=== PATIENT | female | born 2005 | race Caucasian/White ===

== ENCOUNTER 2023-05-11 22:17 | Emergency (ER) | payer SELFPAY ==
[~2023-05-11] VITALS: Ht 167.6 cm; Wt 70.2 kg
[2023-05-11 22:51] LABS: BILIRUBIN,URINE NEGATIVE (NEGATIVE); CLARITY,URINE CLEAR; COLOR,URINE YELLOW; GLUCOSE, URINE (UA) NEGATIVE (NEGATIVE); KETONES,URINE NEGATIVE (NEGATIVE); LEUKOCYTE ESTERASE ,URINE NEGATIVE (NEGATIVE); NITRITE,URINE NEGATIVE (NEGATIVE); PROTEIN,URINE NEGATIVE (NEGATIVE)
[2023-05-11 23:04] LABS: AMPHETAMINE SCREEN, URINE NEGATIVE (NEGATIVE); BARBITURATE SCREEN URINE NEGATIVE (NEGATIVE); BENZODIAZEPINES SCREEN URINE NEGATIVE (NEGATIVE); CANNABINOID SCREEN, URINE NEGATIVE (NEGATIVE); COCAINE SCREEN URINE NEGATIVE (NEGATIVE); METHADONE STAT NEGATIVE (NEGATIVE); OPIATE SCREEN URINE NEGATIVE (NEGATIVE); OXYCODONE STAT NEGATIVE (NEGATIVE); PROPOXYPHENE STAT NEGATIVE (NEGATIVE); TRICYCLIC ANTIDEPRESSANTS SCRE NEGATIVE (NEGATIVE)
[2023-05-11 23:07] LABS: BACTERIA,URINE NEGATIVE /HPF; SQUAMOUS EPITHELIAL CELL,UR 0-2 /HPF
[2023-05-11 23:45] LABS: BASOPHILS # (AUTO) 0.1 10^3/uL (0.0-0.1); BASOPHILS % (AUTO) 1 % (0-10); EOSINOPHILS # (AUTO) 0.2 10^3/uL (0.0-0.3); EOSINOPHILS % (AUTO) 1 % (0-10); HEMATOCRIT 35 % (35-52); HEMOGLOBIN 11.2 g/dL (11.5-16.0); LYMPHOCYTES # (AUTO) 2.5 10^3/uL (1.0-4.0); LYMPHOCYTES % (AUTO) 21 % (12-44); MEAN CORPUSCULAR HEMOGLOBIN 28 pg (25-34); MEAN CORPUSCULAR HGB CONC 33 g/dL (32-36); MEAN CORPUSCULAR VOLUME 87 fL (80-99); MEAN PLATELET VOLUME 10.3 fL (9.0-12.2); MONOCYTES # (AUTO) 0.7 10^3/uL (0.0-1.0); MONOCYTES % (AUTO) 6 % (0-12); NEUTROPHILS # (AUTO) 8.7 10^3/uL (1.8-7.8); NEUTROPHILS % (AUTO) 71 % (42-75); PLATELET COUNT 276 10^3/uL (130-400); WHITE BLOOD COUNT 12.3 10^3/uL (4.3-11.0)
--- NOTE | 2023-05-12 00:32 | ED GU-Female ---
General Chief Complaint: OB < 20 WEEKS Stated Complaint: 7 WEEKS /VAG BLEEDING Nursing Triage Note: PT AMB TO ED BY POV WITH C/O VAGINAL BLEEDING AND LOWER ABD CRAMPING. PT REPORTS SHE BEGAN HAVING BROWN DISCHARGE AND INTERMITTENT ABD CRAMPING 2 WEEKS AGO. TODAY, DISCHARGE IS BLOODY. LMP March, THIS IS PT FIRST . HCG ON 05/07 WAS 64037. Allergies and Home Medications Allergies Coded Allergies: No Known Drug Allergies (Unverified , 05/11/23) Past Gorwtnd-Yoxfez-Zjqatw Hx Patient Social History Tobacco Use?: No Use of E-Cig and/or Vaping dev: No Substance use?: No Alcohol Use?: No Pt feels they are or have been: No Immunizations Up To Date First/Initial COVID19 Vaccinat: N/A Past Medical History Surgery/Hospitalization HX: DENIES Last Menstrual Period: Mar 24, 2023 Physical Exam Vital Signs Vital Signs - First Documented 05/11/23 22:26 Temp 37.1 Pulse 72 Resp 16 B/P (MAP) 131/78 (95) Pulse Ox 99 O2 Delivery Room Air Capillary Refill : Less Than 3 Seconds Height, Weight, BMI Height: '" Weight: lbs. oz. kg; 24.00 BMI Method: Progress/Results/Core Measures Suspected Sepsis SIRS Temperature: Pulse: 72 Respiratory Rate: 16 Laboratory Tests 05/11/23 23:27: White Blood Count 12.3H Blood Pressure 131 /78 Mean: 95 Laboratory Tests 05/11/23 23:27: Platelet Count 276 Results/Orders Lab Results Laboratory Tests Test 05/11/23 22:40 05/11/23 23:27 Range/Units Urine Color YELLOW Urine Clarity CLEAR Urine pH 6.0 5-9 Urine Specific [place] <=1.005 1.016-1.022 Urine Protein NEGATIVE NEGATIVE Urine Glucose (UA) NEGATIVE NEGATIVE Urine Ketones NEGATIVE NEGATIVE Urine Nitrite NEGATIVE NEGATIVE Urine Bilirubin NEGATIVE NEGATIVE Urine Urobilinogen 0.2 < = 1.0 MG/DL Urine Leukocyte Esterase NEGATIVE NEGATIVE Urine RBC (Auto) 2+ H NEGATIVE Urine RBC 2-5 H /HPF Urine WBC NONE /HPF Urine Squamous Epithelial Cells 0-2 /HPF Urine Crystals NONE /LPF Urine Bacteria NEGATIVE /HPF Urine Casts NONE /LPF Urine Mucus NEGATIVE /LPF Urine Culture Indicated NO Urine Opiates Screen NEGATIVE NEGATIVE Urine Oxycodone Screen NEGATIVE NEGATIVE Urine Methadone Screen NEGATIVE NEGATIVE Urine Propoxyphene Screen NEGATIVE NEGATIVE Urine Barbiturates Screen NEGATIVE NEGATIVE Ur Tricyclic Antidepressants Screen NEGATIVE NEGATIVE Urine Phencyclidine Screen NEGATIVE NEGATIVE Urine Amphetamines Screen NEGATIVE NEGATIVE Urine Methamphetamines Screen NEGATIVE NEGATIVE Urine Benzodiazepines Screen NEGATIVE NEGATIVE Urine Cocaine Screen NEGATIVE NEGATIVE Urine Cannabinoids Screen NEGATIVE NEGATIVE White Blood Count 12.3 H 4.3-11.0 10^3/uL Red Blood Count 3.98 3.80-5.11 10^6/uL Hemoglobin 11.2 L 11.5-16.0 g/dL Hematocrit 35 35-52 % Mean Corpuscular Volume 87 80-99 fL Mean Corpuscular Hemoglobin 28 25-34 pg Mean Corpuscular Hemoglobin Concent 33 32-36 g/dL Red Cell Distribution Width 13.5 10.0-14.5 % Platelet Count 276 130-400 10^3/uL Mean Platelet Volume 10.3 9.0-12.2 fL Immature Granulocyte % (Auto) 1 % Neutrophils (%) (Auto) 71 42-75 % Lymphocytes (%) (Auto) 21 12-44 % Monocytes (%) (Auto) 6 0-12 % Eosinophils (%) (Auto) 1 0-10 % Basophils (%) (Auto) 1 0-10 % Neutrophils # (Auto) 8.7 H 1.8-7.8 10^3/uL Lymphocytes # (Auto) 2.5 1.0-4.0 10^3/uL Monocytes # (Auto) 0.7 0.0-1.0 10^3/uL Eosinophils # (Auto) 0.2 0.0-0.3 10^3/uL Basophils # (Auto) 0.1 0.0-0.1 10^3/uL Immature Granulocyte # (Auto) 0.1 0.0-0.1 10^3/uL Human Chorionic Gonadotropin, Quant 00551 H <5 MIU/ML My Orders Orders - GHANSHYAM KASPER DO Cbc With Automated Diff (05/11/23 22:41) Drug Screen Stat (Urine) (05/11/23 22:41) Hcg,Quantitative (05/11/23 22:41) Ua Culture If Indicated (05/11/23 22:41) Abo Rh Type (05/11/23 22:41) Vital Signs/I&O 05/11/23 22:26 Temp 37.1 Pulse 72 Resp 16 B/P (MAP) 131/78 (95) Pulse Ox 99 O2 Delivery Room Air Capillary Refill : Less Than 3 Seconds Blood Pressure Mean: 95 Departure Impression Primary Impression: Threatened in early Disposition: 01 HOME, SELF-CARE Condition: Stable Departure-Patient Inst. Decision time for Depature: 00:30 Referrals: [facility] (PCP/Family) Primary Care Physician Patient Instructions: Threatened Miscarriage (DC) Add. Discharge Instructions: KEEP AN ACCURATE PAD COUNT FOLLOW UP WITH [facility] ON SUNDAY FOR FURTHER CARE LOTS OF FLUIDS TYLENOL NEEDED FOR PAIN NOTHING IN VAGINA--NO TAMPONS, DOUCHING OR INTERCOURSE RETURN TO ER IF YOU HAVE WORSENING SYMPTOMS All discharge instructions reviewed with patient and/or family. Voiced understanding. GHANSHYAM KASPER DO May 12, 2023 00:32
[2023-05-12 00:45] VITALS: BP 128/75
== END 2023-05-12 00:45 | disposition home or self-care (01) ==
LOC: ER 22:22
DX: O20.0 Threatened abortion (principal); Z3A.01 Less than 8 weeks gestation of pregnancy
CPT/HCPCS: 36415; 80306; 81000; 84702; 85025; 86900; 86901

== ENCOUNTER 2023-06-08 05:27 | Outpatient (CLI) | payer SELFPAY ==
[~2023-06-08] VITALS: Ht 167.7 cm; Wt 69.5 kg
== END 2023-06-08 09:55 | disposition home or self-care (01) ==
LOC: PREOP 05:27
PROVIDERS: ATTEND Obstetrics & Gynecology
DX: Z01.818 Encounter for other preprocedural examination (principal)

== ENCOUNTER 2023-06-11 05:49 | Day surgery (SDC) | payer OTHER ==
[~2023-06-11] VITALS: Ht 167.7 cm; Wt 69.5 kg
[2023-06-11] VITALS (11 sets, daily range): BP systolic 86–122; BP diastolic 47–75
[2023-06-11] MEDS: LACTATED RINGERS 1,000 ML 1,000 ML IV PRN ×2 (06:34→07:51)
[2023-06-11] MEDS ORDERED: ONDANSETRON INJECTION 4 MG/2 ML (SDV) ONE (06:51)
[2023-06-11] MEDS ORDERED: proPOfol INJECTION 200 MG/20 ML VIAL IV ONE (06:51)
[2023-06-11] MEDS ORDERED: MIDAZOLAM INJ 2 MG/2 ML VIAL ONE (06:51)
[2023-06-11] MEDS ORDERED: fentaNYL INJECTION 100 MCG/2 ML VIAL ONE (06:51)
[2023-06-11] MEDS ORDERED: KETOROLAC INJ 30 MG/ML VIAL ONE (06:51)
[2023-06-11] MEDS ORDERED: dexAMETHasone INJ 10 MG/ML 1 ML VIAL ONE (06:51)
[2023-06-11] MEDS ORDERED: LIDOCAINE PF 2% 5 ML VIAL ONE (06:51)
--- NOTE | 2023-06-11 07:06 | Operative Report ---
Operative Report Date of Procedure/Surgery Jun 11, 2023 Surgeon (s) JIMMIE LUEVANO DO Fire Control System Installer (s): n/a Post-Operative Diagnosis Missed AB Procedure Performed Suction dilation and curettage Description of Procedure Anesthesia Type: General Estimated blood loss (mL): 200 Specimen(s) collected/removed POC Description of the Procedure Informed consent was obtained and signed and patient was taken to the OR [facility]. 2 placed under general LMA anesthesia placed in dorsolithotomy position prepped and draped usual sterile fashion. A timeout was performed. A pelvic exam under anesthesia revealed a slightly enlarged uterus midline no adnexal masses. The urinary bladder was drained for 250 cc. A weighted speculum was placed into the vaginal vault and the single-tooth tenaculum was used to grasp the anterior lip of the cervix. The cervical os was dilated to allow passage of a 7 [place] curved suction catheter which was passed 3 times and products of conception were removed. A blunt curette was used to fill the edges of the uterine cavity there is a small amount of tissue left on the left side of the uterine cavity. The suction catheter was passed once more and the products of conception were removed. The single-tooth and weighted speculum were removed. Patient was given 20 units of Pitocin in her IV bag. All my counts were correct x2. The patient was taken to recovery room in stable condition. Estimated blood loss was 200 cc. Fluids were 1000 cc. Surgeon was Jimmie Luevano DO. Findings of the Procedure Products of conception Allergies and Home Medications Allergies Coded Allergies: No Known Drug Allergies (Unverified , 06/08/23) Patient Home Medication List Home Medication List Reviewed: Yes Ibuprofen (Ibuprofen) 600 Mg Tablet, 600 MG PO Q6H Prescribed by: Jimmie Luevano on 06/11/23 0754 Last Action: Reviewed JIMMIE LUEVANO DO Jun 11, 2023 07:06
--- NOTE | 2023-06-11 07:06 | Progress Note-Pre Operative ---
Pre-Operative Progress Note Date H&P Reviewed: Jun 11, 2023 Time H&P Reviewed: 07:05 History & Physical: H&P Reviewed, No changes noted Pre-Operative Diagnosis: Missed AB Plan suction D&C JIMMIE LUEVANO DO Jun 11, 2023 07:06
[2023-06-11] MEDS ORDERED: OXYTOCIN INJECTION 10 UNIT/ML VIAL ONE (07:33)
[2023-06-11] MEDS ORDERED: SEVOFLURANE (ULTANE) 15 ML INHAL SOLN ONE (07:37)
[2023-06-11] MEDS ORDERED: IBUP-1773 PO (07:54)
--- NOTE | 2023-06-11 07:55 | Discharge Inst-Simple/Standard ---
Discharge Inst-Standard Reconcile Patient Problems Problems Reviewed?: Yes Discharge Medications New, Converted or Re-Newed RX: Transmitted to Pharmacy Patient Instructions/Follow Up Plan of Care/Instructions/FU: f/u 2wk postop Pelvic rest (nothing in the vagina) Activity as Tolerated: Yes Discharge Diet: Regular Diet JIMMIE LUEVANO DO Jun 11, 2023 07:55
[2023-06-11] MEDS ORDERED: ONDANSETRON INJECTION 4 MG/2 ML (SDV) IVP PRN (08:00)
[2023-06-11] MEDS ORDERED: morphine INJ 10 MG/ML 1ML (SYR OR VIAL) IVP ONE (08:00)
--- NOTE | 2023-06-11 09:10 | Anesthesia-General Post-Op ---
General Patient Condition Mental Status/LOC: Same as Preop Cardiovascular: Satisfactory Nausea/Vomiting: Absent Respiratory: Satisfactory Pain: Controlled Complications: Absent Post Op Complications Complications None Follow Up Care/Instructions Patient Instructions None needed. Anesthesia/Patient Condition Patient Condition Patient is doing well, no complaints, stable vital signs, no apparent adverse anesthesia problems. No complications reported per nursing. ZACHERY TORRES CRNA Jun 11, 2023 09:09
== END 2023-06-11 09:45 | disposition home or self-care (01) ==
LOC: SDC 05:49
PROVIDERS: ATTEND Obstetrics & Gynecology
DX: O02.1 Missed abortion (principal); Z28.310 Unvaccinated for COVID-19
CPT/HCPCS: 86850; 86900; 86901; 87081